=== PATIENT | female | born 1960 | race Two or more races ===

== ENCOUNTER 2018-08-29 16:40 | Outpatient (CLI) | payer OTHER ==
[~2018-08-29] VITALS: Ht 167.6 cm; Wt 74.8 kg
[~2018-08-29 16:40] MED LIST: CRESTOR10 MG; CRESTOR5 MG; FOLGARD TABLET1 EACH; GILTUSS TR TAB1 EACH PO; MELATONIN10 M2; VITAMIN B COMP1 EACH; ZITHROMAX TRI-500 MG PO; ZYRTEC10 MG PO
== END 2018-08-29 17:00 | disposition home or self-care (01) ==
LOC: OFIC 805 16:40
DX: T18.108A Unspecified foreign body in esophagus causing other injury, initial encounter (principal); R13.19 Other dysphagia; K11.7 Disturbances of salivary secretion

== ENCOUNTER 2020-10-22 19:55 | Emergency (ER) | payer OTHER ==
[~2020-10-22] VITALS: Ht 170.2 cm; Wt 70.8 kg
[2020-10-22] MEDS ORDERED: NORFLEX100MG PO (22:06)
== END 2020-10-22 22:26 | disposition home or self-care (01) ==
LOC: ER 19:55
DX: M62.838 Other muscle spasm (principal)